=== PATIENT | male | born 1990 | race Two or more races ===

== ENCOUNTER 2020-03-25 02:59 | Emergency (ER) | payer MEDICAID ==
[~2020-03-25] VITALS: Ht 167.6 cm; Wt 59.0 kg
[2020-03-25 03:58] LABS: *BARBITURATES SCREEN URINE NEGATIVE (NEGATIVE)
[2020-03-25 03:59] LABS: *AMPHETAMINES SCREEN URINE NEGATIVE (NEGATIVE); *BENZODIAZEPINES SCREEN URINE NEGATIVE (NEGATIVE); *COCAINE SCREEN URINE NEGATIVE (NEGATIVE); METHADONE URINE SCREEN NEGATIVE (NEGATIVE); OPIATES URINE SCREEN NEGATIVE (NEGATIVE)
[2020-03-25 04:00] LABS: CANNABINOID URINE SCREEN PRESUMTIVE POSITIVE (NEGATIVE); PHENCYCLIDINE URINE SCREEN NEGATIVE (NEGATIVE)
[2020-03-25 04:04] LABS: BASOPHILS % 0.6 % (0.0-2.0); EOSINOPHILS % 3.1 % (0.0-5.0); HEMATOCRIT. 41.3 % (42.0-52.0); HEMOGLOBIN. 14.2 g/dL (14.0-18.0); MEAN CORPUSCULAR HEMOGLOBIN 30.6 pg (28.0-32.0); MEAN CORPUSCULAR VOLUME 88.9 fL (80.0-94.0); MEAN PLATELET VOLUME 8.2 fl (7.4-10.4); MONOCYTES % 10.6 % (2.0-8.0); NEUTROPHILS % 50.7 % (40.0-76.0); PLATELET 289 x1000/uL (130-400); RED BLOOD CELL COUNT 4.64 mill/uL (4.7-6.1); RED CELL DISTRIBUTION WIDTH 13.2 % (11.6-14.6)
[2020-03-25 04:09] LABS: CHLORIDE 105 mEq/L (98-107)
[2020-03-25 04:12] LABS: ETHANOL BLOOD < 10 mg/dL
[2020-03-25] MEDS: QUETIAPINE FUMARATE 25MG TABLET PO SCH (14:00)
[2020-03-25] MEDS: QUETIAPINE FUMARATE 50MG TABLET PO SCH (21:52)
[2020-03-26] MEDS: QUETIAPINE FUMARATE 25MG TABLET PO SCH ×2 (11:34→14:58)
[2020-03-26] MEDS: QUETIAPINE FUMARATE 50MG TABLET PO SCH (21:14)
[2020-03-27] MEDS: QUETIAPINE FUMARATE 25MG TABLET PO SCH ×2 (09:41→14:51)
[2020-03-27] MEDS: QUETIAPINE FUMARATE 50MG TABLET PO SCH (21:35)
[2020-03-28] MEDS ORDERED: QUETIAPINE FUMARATE 25MG TABLET PO SCH ×2 (09:00→14:00)
[2020-03-28] MEDS ORDERED: POTASSIUM CHLORIDE 20MEQ TABLET SR PO NR (11:30)
[2020-03-28 12:32] LABS: CHLORIDE 106 mEq/L (98-107)
[2020-03-28 12:33] LABS: CLARITY URINE TURBID (CLEAR); COLOR URINE YELLOW (YELLOW); KETONES URINE NEGATIVE (NEGATIVE); LEUKOCYTE ESTERASE URINE NEGATIVE (NEGATIVE); NITRITE URINE NEGATIVE (NEGATIVE); OCCULT BLOOD URINE NEGATIVE (NEGATIVE); PROTEIN URINE NEGATIVE (NEGATIVE)
[2020-03-28 15:25] VITALS: BP 113/63
[2020-03-28] MEDS ORDERED: QUETIAPINE FUMARATE 50MG TABLET PO SCH (21:00)
== END 2020-03-28 15:54 ==
LOC: ER 02:59
DX: R45.851 Suicidal ideations (principal); F20.9 Schizophrenia, unspecified; F12.10 Cannabis abuse, uncomplicated; Z91.14 Patient's other noncompliance with medication regimen; Z20.822 Contact with and (suspected) exposure to COVID-19
CPT/HCPCS: 36415; 80048; 80053; 80305; 80307; 80320; 80329; 81003; 85025; 86592; 86593; 86780; 93005; 99285; C9803; U0003; Z7610; G0480